=== PATIENT | female | born 1960 | race Caucasian/White ===

== ENCOUNTER 2017-11-15 14:27 | Emergency (ER) | payer OTHER ==
--- NOTE | 2017-11-15 14:36 | CPEKG ---
Heart Rate: 48 RR Interval: 1250 P-R Interval: 192 QRSD Interval: 94 QT Interval: 540 QTC Interval: 483 P [place]: 74 QRS [place]: 88 T Wave [place]: 84 EKG Severity - OTHERWISE NORMAL ECG - EKG Impression: SINUS BRADYCARDIA Electronically Signed By: Zohra Shore 15-Nov-2017 21:23:04
[2017-11-15] MEDS ORDERED: NS 500 ML IV ONE (14:39)
[2017-11-15 14:46] LABS: PLATELET COUNT 325 10^3/uL (150-400)
--- NOTE | 2017-11-15 15:08 | EDPHY ---
H & P Time Seen by Provider: 11/15/17 14:40 HPI/ROS: CHIEF COMPLAINT: Lightheadedness, diarrhea HISTORY OF PRESENT ILLNESS: The patient is a 57 y/o female with a history of depression and anxiety arriving via EMS complaining of lightheadedness and diarrhea. Yesterday she took Trazodone and Escitalopram for depression for the first time. This is the first time she has been prescribed antidepressants. Last night she began to have mild abdominal cramping and diarrhea. When she woke up today she felt "fine " but was mildly nauseated. However, when she went to work she stood up from a seated position and fell to her knees due to feeling lightheaded. During this episode she also felt sweaty. She then went to the bathroom. When she returned from the bathroom, she had another episode of lightheadedness.Currently feels nauseated and has mild abdominal cramping. Received the influenza vaccination this year. No vomiting, fever, cough, chest pain, shortness of breath, extremity pain. REVIEW OF SYSTEMS: Aside from elements discussed in the HPI, a comprehensive 10-point review of systems was reviewed and is negative. 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[employer], , lives in [place] Physical Exam: General Appearance: Anxious, pleasant Eyes: Pupils equal and round, no conjunctival pallor or injection ENT, Mouth: Mucous membranes moist Neck: Normal inspection Respiratory: Lungs are clear to auscultation Cardiovascular: Regular rate and rhythm Gastrointestinal: Abdomen is soft and non-tender Neurological: A&O, nonfocal Skin: Warm and dry, no rash Extremities: Normal inspection Psychiatric: Anxious Constitutional: Initial Vital Signs Temperature (C) 35.6 C L 11/15/17 14:27 Heart Rate 48 L 11/15/17 14:27 Respiratory Rate 15 11/15/17 14:27 Blood Pressure 131/90 H 11/15/17 14:27 O2 Sat (%) 100 11/15/17 14:27 O2 Delivery Mode Room Air Allergies/Adverse Reactions: No Known Allergies Allergy (Unverified 11/15/17 14:40) Home Medications: Medication Instructions Recorded Escitalopram Oxalate 11/15/17 Ondansetron Odt [Zofran Odt 4 mg 4 mg PO Q4 PRN #6 tab 11/15/17 (*)] traZODONE 50MG (*) 11/15/17 Medical Decision Making - Diagnostics EKG Interpretation: EKG interpreted by me reveals normal sinus bradycardia with a rate of 48, normal axis, normal intervals, ST and T segments normal. Interpretation: abnormal EKG Imaging: I viewed and interpreted images myself ED Course/Re-evaluation: The patient is a 57 y/o female with a history of depression and anxiety arriving via EMS presenting with lightheadedness and diarrhea. Presentation c/w vasovagal episode related to abdominal cramping and diarrhea. Likely infectious etiology, possibly secondary to new medications. Labs and EKG ordered. 1,500mL IV NS and 12.5mg IV Phenergan administered. Stat EKG reveals sinus bradycardia. 1545: Reassessed patient and discussed imaging and laboratory findings. Feels much better and wants to go home. Abdominal exam remains soft and nontender. Ambulates with a steady gait and denies dizziness. I have prescribed Zofran. Return precautions provided; patient is comfortable with this plan. Differential Diagnosis: Differential diagnosis includes though is not limited to cardiac dysrhythmia, CVA, TIA, GI bleed, sepsis, hypoglycemia. - Data Points Laboratory Results: Laboratory Results 11/15/17 14:36 11/15/17 14:36 Medications Given: Discontinued Medications Sodium Chloride (Ns) 500 mls @ 0 mls/hr IV EDNOW ONE; Wide Open PRN Reason: Protocol Stop: 11/15/17 14:40 Last Admin: 11/15/17 14:51 Dose: 500 mls Sodium Chloride (Ns) 1,000 mls @ 0 mls/hr IV ONCE ONE; Wide Open PRN Reason: Protocol Stop: 11/15/17 15:14 Last Admin: 11/15/17 15:23 Dose: 1,000 mls Promethazine HCl (Phenergan) 12.5 mg IVP EDNOW ONE Stop: 11/15/17 15:16 Last Admin: 11/15/17 15:23 Dose: 6.25 mg Departure - Departure Disposition: Home, Routine, Self-Care Clinical Impression: Near syncope Diarrhea Qualifiers: Diarrhea type: infectious Qualified Code(s): A09 - Infectious gastroenteritis and colitis, unspecified Abdominal pain Qualifiers: Abdominal location: generalized Qualified Code(s): R10.84 - Generalized abdominal pain Condition: Good Instructions: Syncope (ED), Acute Diarrhea (ED), Acute Abdominal Pain (ED) Additional Instructions: For your abdominal pain, nausea, and diarrhea, I suggest that you start with clear liquid diet and advance your diet as tolerated. This means start with clear liquids such as water, Gatorade, apple juice and non -caffeinated soda. If you tolerate clear liquids, then you may add bland foods such as bananas, rice, applesauce and toast. If you do not have any worsening of your symptoms, you may begin to resume a regular diet. You have been given a prescription of Zofran to use as needed for ongoing nausea. You may take Tylenol or ibuprofen as needed for abdominal cramping. Pepto-Bismol or gas relieving drugs may provide some relief from belching. Follow up with your regular physician or return to emergency department if you' re still vomiting tomorrow or not improving as expected in the next 1-2 days. Followup sooner if you're worse. Referrals: Lauren Tavarez MD [Primary Care Provider] - As per Instructions Prescriptions: Ondansetron Odt [Zofran Odt 4 mg (*)] 4 mg PO Q4 PRN #6 tab PRN Reason: Nausea Report Scribed for: Zohra Shore Report Scribed by: Louisa Del Angel Date of Report: 11/15/17 Time of Report: 15:08 Physician Review and Approval Statement: 11/15/17 15:08 Portions of this note were transcribed by a forensic medical examiner. I personally performed a history, physical exam, medical decision making, and confirmed accuracy of information the transcribed note.
[2017-11-15] MEDS ORDERED: NS 1,000 ML IV ONE (15:13)
[2017-11-15] MEDS ORDERED: PROMETHAZINE HCL 25 MG/ML INJ IVP ONE (15:15)
[2017-11-15 16:12] VITALS: BP 120/83; PULSE 55; RESP 13; TEMP 97.5; O2SAT 97
== END 2017-11-15 16:12 | disposition home or self-care (01) ==
LOC: EDUNIT#
DX: A09 Infectious gastroenteritis and colitis, unspecified (principal); E86.9 Volume depletion, unspecified; R55 Syncope and collapse
CPT/HCPCS: 96374; J2550

== ENCOUNTER → 2018-01-19 | Outpatient (CLI) | payer OTHER ==
[~2018-01-19] MED LIST: GADOBUTROL 10 ML VIAL IVP ONE
== END ==
LOC: FIMAGING 07:07
PROVIDERS: ATTEND Family Medicine
DX: R55 Syncope and collapse (principal); R90.82 White matter disease, unspecified; M26.69 Other specified disorders of temporomandibular joint
CPT/HCPCS: A9585